=== PATIENT | female | born 1970 | race Caucasian/White ===

== ENCOUNTER 2022-04-16 12:06 | Emergency (ER) | payer BC ==
[2022-04-16 12:55] VITALS: BP 130/91; PULSE 74; RESP 18; TEMP 98.5; BMI 22.6
[2022-04-16] MEDS ORDERED: FLUORESCEIN NA 1 EA STRIP OU ONE (13:36)
[2022-04-16] MEDS ORDERED: FLUORESCEIN NA 1 EA STRIP ONE (13:37)
[2022-04-16] MEDS ORDERED: TETRACAINE 0.5% HCL 0.6ML DROPPER.BOTTLE OU ONE (14:00)
[2022-04-16] MEDS ORDERED: TETRACAINE 0.5% OPHTH SOLN 2 ML BOTTLE ONE (14:03)
== END 2022-04-16 14:44 | disposition home or self-care (01) ==
LOC: JERFT 12:06
DX: H57.89 Other specified disorders of eye and adnexa (principal)
CPT/HCPCS: 0241U-QW; 99283-25